=== PATIENT | male | born 1995 | race Caucasian/White ===

== ENCOUNTER 2018-02-20 02:12 | Emergency (ER) | payer SELFPAY ==
[2018-02-20] MEDS ORDERED: LIDOCAINE 1% W/ EPINEPHRINE 20 ML VIAL INJ ONE (02:35)
--- NOTE | 2018-02-20 03:03 | ED.PDOC ---
History of Present Illness - General Chief Complaint: Dental/Mouth Stated Complaint: jaw pain Time Seen by Provider: 02/20/18 03:00 Source: patient - History of Present Illness Initial Comments: EARLIER TODAY HE BIT HIS RIGHT CHEEK, NOW BLEEDING. Timing/Duration: abrupt EENT Location: mouth Improving Factors: nothing Worsening Factors: nothing Associated Symptoms: drooling Allergies/Adverse Reactions: Allergies Ceftriaxone [From Rocephin] Allergy (Intermediate, Verified 02/20/18 02:22) Home Medications: Ambulatory Orders Clindamycin HCl 300 mg PO Q6HRS #7 cap 02/20/18 Sulfa/Trimeth 800/160 (Ds) Tab [Bactrim DS] 1 tablet PO BID #20 tablet 02/20/18 Review of Systems - Review of Systems Constitutional: States: no symptoms reported EENTM: States: mouth pain Respiratory: States: no symptoms reported Cardiology: States: no symptoms reported Gastrointestinal/Abdominal: States: no symptoms reported Genitourinary: States: no symptoms reported Musculoskeletal: States: no symptoms reported Skin: States: no symptoms reported Neurological: States: no symptoms reported Past Medical History (General) - Patient Medical History Hx Seizures: No Hx Stroke: No Hx Dementia: No Hx Asthma: No Hx of COPD: No Hx Cardiac Disorders: No Hx Congestive Heart Failure: No Hx Pacemaker: No Hx Hypertension: No Hx Thyroid Disease: No Hx Diabetes: No Hx Gastroesophageal Reflux: No Hx Renal Disease: No Hx Cancer: No Hx of HIV: No Hx Hepatitis C: No Hx MRSA: No Surgical History: other - Vaccination History Hx Tetanus, Diphtheria Vaccination: Yes Hx Influenza Vaccination: Yes Hx Pneumococcal Vaccination: No Immunizations Up to Date: Yes - Social History Hx Tobacco Use: Yes Cigarettes Packs Per Day: 1 Hx Chewing Tobacco Use: No Hx Alcohol Use: No Hx Substance Use: No Hx Substance Use Treatment: No Hx Depression: No Feels Threatened In Home Enviroment: No Feels Threatened In a Relationship: No Hx Physical Abuse: No Hx Emotional Abuse: No Hx Suspected Abuse: No - Activities of Daily Living Hospice Agency (if applicable):: None - Triage Comment ED Triage Comment: Pt states that he fell at work around 1999 on 02/19/18 and his mouth has not quit bleeding since then. Pt states that he has been unable to sleep and that his pain is 7/10. Family Medical History - Family History Mother Family History: Unknown Physical Exam - Physical Exam General Appearance: Alert, Well Developed, Well Groomed, Well Hydrated Eye Exam: bilateral normal Throat Exam: other - LACERATION TO THE RIGHT ORAL MUCOSA. Neck: full range of motion, supple, normal inspection Cardiovascular/Respiratory: regular rate, rhythm, no M/R/G, normal peripheral pulses, no JVD Abdominal Exam: non-tender, no organomegaly Neurologic: no motor/sensory deficits, alert, normal mood/affect, oriented x 3 Skin Exam: normal color Procedures - Laceration/Wound Repair Right Cheek Wound Length (cm): 4 - ORAL MUCOSA Wound's Depth, Shape: irregular Wound Explored: no foreign body removed Irrigated w/ Saline (cc's): 3 Betadine Prep?: No Anesthesia: Lidocaine w/ Epi Volume Anesthetic (cc's): 3 Wound Debrided: minimal Wound Repaired With: sutures Suture Size/Type: 6:0, fast absorbing gut Number of Sutures: 4 Sterile Dressing Applied?: No Splint Applied?: No Sling Applied?: No Departure - Departure Clinical Impression: Human bite causing injury Qualifiers: Encounter type: initial encounter Qualified Code(s): W50.3XXA - Accidental bite by another person, initial encounter Laceration of cheek, right Qualifiers: Encounter type: initial encounter Qualified Code(s): S01.411A - Laceration without foreign body of right cheek and temporomandibular area, initial encounter Time of Disposition: 03:06 Disposition: Discharge to Home or Self Care Condition: Good Departure Forms: ED Discharge - Pt. Copy, Patient Portal Self Enrollment Diet: full liquid diet Prescriptions: Clindamycin HCl 300 mg PO Q6HRS #7 cap Sulfa/Trimeth 800/160 (Ds) Tab [Bactrim DS] 1 tablet PO BID #20 tablet Home Medications: Ambulatory Orders Clindamycin HCl 300 mg PO Q6HRS #7 cap 02/20/18 Sulfa/Trimeth 800/160 (Ds) Tab [Bactrim DS] 1 tablet PO BID #20 tablet 02/20/18
[2018-02-20] MEDS ORDERED: CLINDAMYCIN HCL CAP 150 MG CAP ONE (03:06)
[2018-02-20] MEDS ORDERED: CLINDAMYCIN HCL CAP 150 MG CAP PO ONE (03:13)
[2018-02-20 03:20] VITALS: BP 157/91; TEMP 97.6; O2SAT 100
== END 2018-02-20 03:17 | disposition home or self-care (01) ==
LOC: ER 02:12
DX: S01.411A Laceration without foreign body of right cheek and temporomandibular area, initial encounter (principal); F17.210 Nicotine dependence, cigarettes, uncomplicated; W50.3XXA Accidental bite by another person, initial encounter; W18.39XA Other fall on same level, initial encounter; Y99.0 Civilian activity done for income or pay; Y92.69 Other specified industrial and construction area as the place of occurrence of the external cause; Z88.1 Allergy status to other antibiotic agents

== ENCOUNTER 2018-09-15 08:21 | Emergency (ER) | payer BC, SELFPAY ==
[2018-09-15 08:33] VITALS: TEMP 97.9
[2018-09-15] MEDS ORDERED: SODIUM CHLORIDE 0.9% 1000ML 1,000 ML IVS ONE (08:40)
[2018-09-15] MEDS ORDERED: PANTOPRAZOLE SODIUM IV 40 MG VIAL IV ONE (08:40)
[2018-09-15] MEDS ORDERED: ONDANSETRON INJ 4 MG/2 ML VIAL IV ONE (08:40)
--- NOTE | 2018-09-15 08:44 | ED.PDOC ---
History of Present Illness - General Chief Complaint: GI Problem Stated Complaint: vomiting blood Time Seen by Provider: 09/15/18 08:33 Information Source: patient Exam Limitations: no limitations - History of Present Illness Initial Comments: Pt has vomited x 10 this am with small amount of dark blood. Pt feels weak and dizzy. Denies abd pain. Pt has daily nausea and vomiting every morning since childhood, but today is worse because of blood in emesis Abdominal Pain Onset Location: epigastric Pain Radiation: no radiation Quality: mild Timing/Duration: 1-3 hours Improving Factors: nothing Worsening Factors: nothing Associated Symptoms: nausea/vomiting Review of Systems - Review of Systems Constitutional: States: malaise, weakness. Denies: diaphoresis EENTM: States: no symptoms reported Respiratory: Denies: cough, short of breath Cardiology: Denies: chest pain, edema Gastrointestinal/Abdominal: States: nausea, vomiting. Denies: abdominal pain, diarrhea Musculoskeletal: States: no symptoms reported Skin: States: no symptoms reported Neurological: States: no symptoms reported Endocrine: States: no symptoms reported Hematologic/Lymphatic: States: no symptoms reported Past Medical History (General) - Patient Medical History Hx Seizures: No Hx Stroke: No Hx Dementia: No Hx Asthma: No Hx of COPD: No Hx Cardiac Disorders: No Hx Congestive Heart Failure: No Hx Pacemaker: No Hx Hypertension: No Hx Thyroid Disease: No Hx Diabetes: No Hx Gastroesophageal Reflux: No Hx Renal Disease: No Hx Cancer: No Hx of HIV: No Hx Hepatitis C: No Hx MRSA: No Surgical History: other - Vaccination History Hx Tetanus, Diphtheria Vaccination: Yes Hx Influenza Vaccination: Yes Hx Pneumococcal Vaccination: No - Social History Hx Tobacco Use: Yes Hx Chewing Tobacco Use: No Hx Alcohol Use: No Hx Substance Use: No Hx Substance Use Treatment: No Hx Depression: No Hx Physical Abuse: No Hx Emotional Abuse: No Hx Suspected Abuse: No Family Medical History - Family History Mother Family History: Unknown Physical Exam - Physical Exam General Appearance: Alert, Anxious Eyes, Ears, Nose, Throat Exam: PERRL/EOMI, normal ENT inspection, pharynx normal Neck: non-tender, full range of motion, supple Respiratory: chest non-tender, lungs clear, normal breath sounds Cardiovascular/Chest: normal peripheral pulses, regular rate, rhythm, no edema Gastrointestinal/Abdominal: normal bowel sounds, non tender, soft Extremity: normal range of motion, non-tender, normal inspection, no pedal edema Neurologic: alert, normal mood/affect, oriented x 3 Skin Exam: normal color, warm/dry Lymphatic: no adenopathy Progress - Progress Progress: 09/15/18 10:04 Pt feels better now after meds and fluids Departure - Departure Clinical Impression: Gastritis Qualifiers: Gastritis type: unspecified gastritis Chronicity: acute Gastritis bleeding: with bleeding Qualified Code(s): K29.01 - Acute gastritis with bleeding Disposition: Discharge to Home or Self Care Condition: Fair Departure Forms: ED Discharge - Pt. Copy, Patient Portal Self Enrollment Prescriptions: Ondansetron Tab [Zofran Tab] 4 mg PO Q4HR PRN #20 tab PRN Reason: Nausea Pantoprazole Sodium [Protonix] 20 mg PO ACBK #20 tablet Home Medications: Ambulatory Orders Ondansetron Tab [Zofran Tab] 4 mg PO Q4HR PRN #20 tab 09/15/18 Pantoprazole Sodium [Protonix] 20 mg PO ACBK #20 tablet 09/15/18 Additional Instructions: Off work today
[2018-09-15 10:16] VITALS: BP 127/74; O2SAT 97
== END 2018-09-15 10:15 | disposition home or self-care (01) ==
LOC: ER 08:21
DX: K29.01 Acute gastritis with bleeding (principal); Z87.891 Personal history of nicotine dependence
CPT/HCPCS: 36415; 80053; 85025; 85610; 85730; J2405; J7030